=== PATIENT | male | born 1985 | race Caucasian/White ===

== ENCOUNTER 2018-11-07 11:51 | Day surgery (SDC) | payer OTHER ==
[~2018-11-07] VITALS: Ht 162.6 cm; Wt 65.0 kg
[~2018-11-07 11:51] MED LIST: OMEP20TA PO
[2018-11-07] MEDS ORDERED: NS 1,000 ML IV ONE (12:30)
[2018-11-07] MEDS ORDERED: PROPOFOL 200 MG/20 ML VIAL As Ordered ONE (12:46)
[2018-11-07] MEDS ORDERED: LIDOCAINE 2% INJ 100 MG/5 ML SDV (FOR ANES.) As Ordered ONE (12:47)
--- NOTE | 2018-11-07 13:08 | ROOR ---
Patient Name: Hugo Rowland Procedure Date: 11/07/2018 12:58 PM Date of : 1985 Age: 33 Room: [facility] Gender: Male Note Status: Finalized Procedure: Upper GI endoscopy Indications: Chronic cough, Vomiting Providers: Bruno BAKER MD Referring MD: Sita Matias MD Requesting Provider: Medicines: Monitored Anesthesia Care Complications: No immediate complications. Procedure: Pre-Anesthesia Assessment: - The heart rate, respiratory rate, oxygen saturations, blood pressure, adequacy of pulmonary ventilation, and response to care were monitored throughout the procedure. The Endoscope was introduced through the mouth, and advanced to the second part of duodenum. The upper GI endoscopy was accomplished without difficulty. The patient tolerated the procedure well. Findings: The esophagus was normal. The stomach was normal. The examined duodenum was normal. Impression: - Normal esophagus. - Normal stomach. - Normal examined duodenum. - No specimens collected. Recommendation: - Observe patient's clinical course. - Continue present medications. Bruno Baker MD Bruno BAKER MD 11/07/2018 1:08:03 PM This report has been signed electronically. Number of Addenda: 0 Note Initiated On: 11/07/2018 12:58 PM Estimated Blood Loss: Estimated blood loss: none.
[2018-11-07 13:25] VITALS: BP 125/85
== END 2018-11-07 13:32 | disposition home or self-care (01) ==
LOC: M OPP 11:51
PROVIDERS: ATTEND Internal Medicine Gastroenterology
DX: R05 Cough (principal); R11.10 Vomiting, unspecified; R12 Heartburn; F17.210 Nicotine dependence, cigarettes, uncomplicated; Z80.1 Family history of malignant neoplasm of trachea, bronchus and lung; Z79.899 Other long term (current) drug therapy

== ENCOUNTER 2021-02-06 20:57 | Inpatient (IN) | payer OTHER, SELFPAY ==
[~2021-02-06] VITALS: Ht 162.6 cm; Wt 65.4 kg
[~2021-02-06 20:57] MED LIST changes: +OMEP-358 PO; -OMEP20TA PO
[2021-02-06 22:19] LABS: HEMOGLOBIN 15.2 g/dl (13.5-17.5); MEAN CORPUSCULAR HEMOGLOBIN 30.8 pg (27.0-33.0); MEAN CORPUSCULAR HGB CONC 33.8 g/dl (32.0-36.5); MEAN CORPUSCULAR VOLUME 91.1 fl (80.0-96.0); PLATELET COUNT, AUTOMATED 290 10^3/uL (150-450); RED BLOOD COUNT 4.94 10^6/uL (4.30-6.10)
[2021-02-06 22:48] LABS: AMPHETAMINES LEVEL URINE NEGATIVE (NEGATIVE); BARBITURATES URINE NEGATIVE (NEGATIVE); BENZODIAZEPINES URINE NEGATIVE (NEGATIVE); CANNABINOIDS URINE NEGATIVE (NEGATIVE); COCAINE METABOLITE URINE NEGATIVE (NEGATIVE); METHADONE URINE NEGATIVE (NEGATIVE); OPIATES URINE NEGATIVE (NEGATIVE); PHENCYCLIDINE URINE NEGATIVE (NEGATIVE)
[2021-02-06 23:02] LABS: ACETAMINOPHEN LEVEL < 2.0 UG/ML (10.0-30.0); ALBUMIN 3.7 GM/DL (3.2-5.2); ALT/SGPT 21 U/L (12-78); BILIRUBIN,DIRECT < 0.1 MG/DL (0.0-0.2); BILIRUBIN,TOTAL 0.2 MG/DL (0.2-1.0); BLOOD UREA NITROGEN 12 MG/DL (7-18); CALCIUM LEVEL 8.6 MG/DL (8.5-10.1); CARBON DIOXIDE LEVEL 27 MEQ/L (21-32); CHLORIDE LEVEL 107 MEQ/L (98-107); CREATININE FOR GFR 0.82 MG/DL (0.70-1.30); ETHYL ALCOHOL (ETHANOL) 0.062 % (0.000-0.010); GLOMERULAR FILTRATION RATE > 60.0 (>60); GLUCOSE, FASTING 102 MG/DL (70-100); POTASSIUM SERUM 3.9 MEQ/L (3.5-5.1); SALICYLATE LEVEL 3.5 MG/DL (5.0-30.0); SODIUM LEVEL 141 MEQ/L (136-145); TOTAL PROTEIN 6.7 GM/DL (6.4-8.2)
[2021-02-07] MEDS ORDERED: METAL LOCK LOOP XX ONE (01:20)
[2021-02-07] MEDS ORDERED: ACETAMINOPHEN 325 MG TAB PO ONE (04:15)
[2021-02-07 05:05] LABS: RSV AMPLIFICATION NEGATIVE (NEGATIVE)
[2021-02-07] MEDS ORDERED: MAALOX 30 ML SUSP *UDC PO PRN (05:40)
[2021-02-07] MEDS ORDERED: ACETAMINOPHEN TAB 650MG DOSE (2X325MG) PO PRN (05:40)
[2021-02-07] MEDS ORDERED: MOM 30ML SUSPENSION UDC PO PRN (05:40)
[2021-02-07] MEDS ORDERED: traZODone 50 MG TAB PO PRN (05:40)
[2021-02-07] MEDS: NICOTINE 21MG/24HR 1 EA TRANSDERMAL TD SCH (09:00)
[2021-02-07 09:14] VITALS: BP 142/88
--- NOTE | 2021-02-07 12:54 | MHHPE ---
HISTORY AND PHYSICAL DATE OF ADMISSION: 02/07/2021 IDENTIFYING DATA: This is a 36-year-old male living with his girlfriend and two of his children who was admitted because of suicidal and homicidal statements. CHIEF COMPLAINT: "I don't need to answer you, everything is in the chart." HISTORY OF PRESENT ILLNESS: The patient was angry and uncooperative. He was exhibiting some hostility and reported that I can look into the chart to see the history. Going through the ER report, the patient called his cousin stating that he wanted to kill his family and then kill him self, and the patient reportedly admitted it in the ER that he made those statements, but he denied suicidal ideas. The patient reportedly was depressed after the of his father and his family was letting him down and he is angry with them. The patient reportedly had a gun in his vehicle, which has been removed by his girlfriend's son. Reportedly, he was having it since hunting season. He denies any suicidal attempts in the past. Denies any auditory or visual hallucinations. Reports he has never seen a psychiatrist before, but when he was young he had seen therapists for anger management. According to the ER report, his girlfriend says he is getting angry even for trivial things and easily irritable; however, has not made any suicidal or homicidal statements against her. Since the patient is angry and hostile, I was not able to ask some questions pertaining to his history and past psychiatric hospitalization. He reported that he does not want to be on any medications. PAST PSYCHIATRIC HISTORY: He denies. PAST MEDICAL HISTORY: He denies any medical problems. FAMILY HISTORY: He does not want to talk about his family. MENTAL STATUS EXAMINATION: Appearance is moderately well-groomed. Behavior is agitated, hostile, and demeaning. Eye contact indirect. Speech monosyllabic. Mood depressed and anxious. Affect constricted. Thought process linear goal directed. Thought content: Denied any suicidal or homicidal ideas. Perception: Denied any auditory or visual hallucinations. Cognition: Alert and oriented to time, place, and person. Insight and judgment are poor. VITAL SIGNS: Temperature 98.3, pulse 86, respiratory rate 16, blood pressure 142/88, pulse oximetry 99%. LABORATORY DATA: CBC within normal limits. CMP within normal limits. Toxicology: Alcohol level was 0.062. REVIEW OF SYSTEMS: Constitutional: No night sweats. No fever. HEENT: No headache. No sore throat. No epistaxis. Respiratory: Denied any shortness of breath or cough. Cardiovascular: Denied any palpitations or chest pain. Gastrointestinal: Denied abdominal pain. Denied any change in bowel habits. Genitourinary: Denied any dysuria or hematuria. Neurologic: Denied any numbness, tingling, or dizziness. Musculoskeletal: Denied any bone or joint aches. DIAGNOSIS: Mood disorder not otherwise specified; rule out adjustment disorder, rule out alcohol intoxication. PLAN: 1. Admit to [facility]. 2. He will be seen by hospitalist for any medical needs. 3. He will be seen by child protective services social worker and case management. 4. He will be continuing individual group and milieu therapy. 5. Medication: The patient refuses to take any medication. I will try to place him on some mood stabilizer one the patient agrees to take the medication. Estimated length of time spent: 45 minutes. Estimated length of stay is four to five days. MTDD
[2021-02-07 18:31] VITALS: BP 114/75
[2021-02-08 06:38] VITALS: BP 154/99
[2021-02-08] MEDS: CitaloPRAM (CeleXA) 10 MG TABLET PO SCH (09:00)
[2021-02-08] MEDS: NICOTINE 21MG/24HR 1 EA TRANSDERMAL TD SCH (09:00)
--- NOTE | 2021-02-08 14:54 | MHIPN ---
[facility] PROGRESS NOTE DATE: 02/08/2021 SUBJECTIVE: "I don't want to take any medicines." OBJECTIVE: He is a 36-year-old male, living with his girlfriend and two of sons, who was admitted because of suicidal and homicidal statements. He reportedly told his cousin that he wanted to kill his family and then kill himself. Patient reportedly was depressed after the of his father. He has never seen a psychiatrist before. This is his first psychiatric hospitalization; however, he has seen therapist for anger management. Currently patient is isolative, and we are waiting for the collaterals from the family. MENTAL STATUS EXAMINATION: Casually dressed, cooperative. Made good eye contact. Lying in his bed. Psychomotor activity is normal. Speech rate, rhythm, volume are good. Denied any suicidal or homicidal ideas. Denied any hallucinations. Memory, immediate, remote, recent, is good. VITAL SIGNS: Temperature 98.1, pulse 83, respirations 16, blood pressure 154/99, pulse oximetry 94. LABORATORY DATA: CBC within normal limits. CMP within normal limits. Toxicology: Slightly increased ethyl alcohol level, 0.062. PLAN: Place him on antidepressants and have a family meeting with his mother and siblings. ESTIMATED LENGTH OF STAY: 3-4 days. TIME SPENT: 25 minutes.
--- NOTE | 2021-02-08 15:03 | HPEPDOC ---
[facility] Medical History & Physical Date of Admission Feb 07, 2021 Date of Service: Feb 08, 2021 Attending Physician: MELISSA HOU MD History and Physical CHIEF COMPLAINT: Threatening homicidal and suicidal ideations with access to gun HISTORY OF PRESENT ILLNESS: 36-year-old man who was brought into the ED after he threatened to kill members of his family and also voiced threats of suicide with known access to a gun that was later recovered and found unloaded i/s/o psychosocial stressors with the recent of his father. He confirmed having voiced homicidal threats and saying suicidal statements though he denied being suicidal. He was minimally verbal during out encounter and would not explain the environmental and psychosocial stressors further beyond the above statements. He denies any history of known chronic illness, does not take any medications at baseline, denies any illicit drug use, and endorses being a chronic smoker and occasional alcohol consumer. In the ED he was hemodynamically stable, afebrile, breathing comfortably on room air with a normal CBC and BMP and tox screen that was positive for ethyl alcohol and otherwise negative. Internal medicine is now consulted for medical evaluation. ROS: 10 point ROS was grossly negative except that he feels upset and frustrated with some of his family members. He would not answer to depression, sleep patterns and if he has thoughts of self harm. PAST PSYCHIATRIC HISTORY: Denies any prior history of psychiatric diagnoses PAST MEDICAL HISTORY: He denies any medical problems. FAMILY HISTORY: Refused to talk about his family. PHYSICAL EXAMINATION: GENERAL: NAD Head: NCAT EENT: EOMI, MMM NECK: supple. No adenopathy, has a long romero PULM: CTAB CARDIAC: RRR, no m/r/g ABD: Normoactive bowel sounds, soft, NTND EXT: WWP, no LE edema NEURO: CN2-12 grossly intact, normal gait PSYCH: withdrawn during interview, affect appears normal at this time LABS: reviewed ASSESSMENT: 36 yo M with no PMHx who [facility] for homicidal and suicidal threats i/s/o the recent of his father. PLAN: Homicidal and suicidal ideation i/s/o the recent of his father: -Plan per primary psychiatry team Nicotine addiction: -Declined nicotine patch -Will continue thinking about quitting smoking Medicine will sign off at this time. Please re-consult for any medical concerns. Vital Signs Vital Signs Date Time Temp Pulse Resp B/P (MAP) Pulse Ox O2 Delivery O2 Flow Rate FiO2 02/08/21 06:38 98.1 83 16 154/99 (117) 94 Room Air Home Medications No Active Prescriptions or Reported Meds Allergies Coded Allergies: No Known Allergies (Verified , 04/20/03) A-FIB/CHADSVASC A-FIB History Current/History of A-Fib/PAF?: No Current PO Anticoag Therapy: No Age/Risk Factor Scoring CHADSVASC: CHADSVASC Response (Comments) Value Age Risk Factor Age < 65 years old 0 Gender Risk Factor Male 0 Hx of CHF No 0 Hx of HTN No 0 Hx of Stroke/TIA/or VTE No 0 Hx of Diabetes No 0 Hx of Vascular Disease No 0 Total 0 Treatment Treatment ordered: NONE Reason Anticoagulant not given: Not indicated/[id number] MELISSA HOU MD Feb 08, 2021 15:03
[2021-02-08 16:04] VITALS: BP 132/71
[2021-02-09 06:14] VITALS: BP 133/67
[2021-02-09] MEDS: CitaloPRAM (CeleXA) 10 MG TABLET PO SCH (09:00)
[2021-02-09] MEDS: NICOTINE 21MG/24HR 1 EA TRANSDERMAL TD SCH (09:00)
--- NOTE | 2021-02-09 13:05 | MHIPNPDOC ---
[facility] Progress Note Progress Note DATE OF SERVICE: 02/09/21 SUBJECTIVE: "I don't want to take any medicines." have Alcohol issue OBJECTIVE: He is a 36-year-old male, living with his girlfriend and two of sons, who was admitted because of suicidal and homicidal statements. He reportedly told his cousin that he wanted to kill his family and then kill himself. Patient reportedly was depressed after the of his father. He has never seen a psychiatrist before. This is his first psychiatric hospitalization; however, he has seen therapist for anger management. Currently patient is isolative, and we are waiting for the collaterals from the family. Still he is not allowing us to talk to the family MENTAL STATUS EXAMINATION: Casually dressed, cooperative. Made good eye contact. Lying in his bed. Psychomotor activity is normal. Speech rate, rhythm, volume are good. Denied any suicidal or homicidal ideas. Denied any hallucinations. Memory, immediate, remote, recent, is good. Assessment : Depressive Disorder Unspecified R/ O Major Depressive disorder LABORATORY DATA: CBC within normal limits. CMP within normal limits. Toxicology: Slightly increased ethyl alcohol level, 0.062. PLAN: Encourage him to take antidepressants and have a family meeting with his mother and siblings. ESTIMATED LENGTH OF STAY: 3-4 days. TIME SPENT: 25 minutes. Vital Signs Vital Signs Date Time Temp Pulse Resp B/P (MAP) Pulse Ox O2 Delivery O2 Flow Rate FiO2 02/09/21 06:14 98.7 69 18 133/67 (89) 100 Room Air Current Medications Current Medications Medications (Trade) Dose Ordered Sig/Tamia Route PRN Reason Start Time Stop Time Status Last Admin Dose Admin Acetaminophen (Tylenol Tab) 650 mg Q6HP PRN PO HEADACHE or DISCOMFORT 02/07/21 05:40 Al Hydrox/Mg Hydrox/Simethicone (Mylanta) 30 ml Q4HP PRN PO HEARTBURN/INDIGESTION 02/07/21 05:40 Citalopram Hydrobromide (CeleXA) 10 mg DAILY PO 02/08/21 09:00 Home Med (Med Rec Complete!) ASDIRECTED XX 02/07/21 07:00 02/07/21 07:06 DC Magnesium Hydroxide (Milk Of Magnesia) 30 ml DAILYPRN PRN PO CONSTIPATION 02/07/21 05:40 Nicotine (Nicoderm Cq 21mg) 1 patch DAILY TD 02/07/21 09:00 Trazodone HCl (Desyrel) 50 mg QHSP PRN PO INSOMNIA 02/07/21 05:40 Allergies Coded Allergies: No Known Allergies (Verified , 04/20/03) GERMÁN TILLEY MD Feb 09, 2021 13:05
[2021-02-09 16:07] VITALS: BP 118/79
[2021-02-10 06:38] VITALS: BP 118/62
[2021-02-10] MEDS: CitaloPRAM (CeleXA) 10 MG TABLET PO SCH (08:38)
[2021-02-10] MEDS: NICOTINE 21MG/24HR 1 EA TRANSDERMAL TD SCH (08:38)
--- NOTE | 2021-02-10 13:37 | MHIPNPDOC ---
[facility] Progress Note Progress Note DATE OF SERVICE: 02/10/21 SUBJECTIVE: "I don't want to take any medicines." have Alcohol issue I was drinking when I made those statements. I do not mean to hurt my family or me" OBJECTIVE: He is a 36-year-old male, living with his girlfriend and two of sons, who was admitted because of suicidal and homicidal statements. He reportedly told his cousin that he wanted to kill his family and then kill himself. Patient reportedly was depressed after the of his father. He has never seen a psychiatrist before. This is his first psychiatric hospitalization; however, he has seen therapist for anger management. Currently patient is interacting with the staff and calmer SW called his girl friend and his mother.They are willing to accept him ,According to family it is ongoing issue but never made statement to hurt himself and pt agreed to take medications.Denied SI or HI. MENTAL STATUS EXAMINATION: Casually dressed, cooperative. Made good eye contact. Lying in his bed. Psychomotor activity is normal. Speech rate, rhythm, volume are good. Denied any suicidal or homicidal ideas. Denied any hallucinations. Memory, immediate, remote, recent, is good. Assessment : Depressive Disorder Unspecified R/ O Major Depressive disorder LABORATORY DATA: CBC within normal limits. CMP within normal limits. Toxicology: Slightly increased ethyl alcohol level, 0.062. PLAN: Start on fluoxetine 10 mg daily ESTIMATED LENGTH OF STAY: 3-4 days. TIME SPENT: 25 minutes. Vital Signs Vital Signs Date Time Temp Pulse Resp B/P (MAP) Pulse Ox O2 Delivery O2 Flow Rate FiO2 02/10/21 06:38 97.9 66 20 118/62 (80) 99 Room Air Current Medications Current Medications Medications (Trade) Dose Ordered Sig/Tamia Route PRN Reason Start Time Stop Time Status Last Admin Dose Admin Acetaminophen (Tylenol Tab) 650 mg Q6HP PRN PO HEADACHE or DISCOMFORT 02/07/21 05:40 Al Hydrox/Mg Hydrox/Simethicone (Mylanta) 30 ml Q4HP PRN PO HEARTBURN/INDIGESTION 02/07/21 05:40 Citalopram Hydrobromide (CeleXA) 10 mg DAILY PO 02/08/21 09:00 Home Med (Med Rec Complete!) ASDIRECTED XX 02/07/21 07:00 02/07/21 07:06 DC Magnesium Hydroxide (Milk Of Magnesia) 30 ml DAILYPRN PRN PO CONSTIPATION 02/07/21 05:40 Nicotine (Nicoderm Cq 21mg) 1 patch DAILY TD 02/07/21 09:00 Trazodone HCl (Desyrel) 50 mg QHSP PRN PO INSOMNIA 02/07/21 05:40 Allergies Coded Allergies: No Known Allergies (Verified , 04/20/03) GERMÁN TILLEY MD Feb 10, 2021 13:37
[2021-02-10] MEDS ORDERED: FLUoxetine 10 MG CAP PO ONE (13:45)
[2021-02-10 16:43] VITALS: BP_SYST 140; BP_SYST 153; BP_DIAS 67; BP_DIAS 75
[2021-02-11] MEDS ORDERED: FLUO10CA16 PO (08:45)
[2021-02-11] MEDS ORDERED: FLUoxetine 10 MG CAP PO SCH (09:00)
[2021-02-11] MEDS: NICOTINE 21MG/24HR 1 EA TRANSDERMAL TD SCH (09:00)
--- NOTE | 2021-02-11 10:24 | MHDS ---
[facility] DISCHARGE SUMMARY DATE OF ADMISSION: 02/07/2021 DATE OF DISCHARGE: 02/11/2021 IDENTIFYING DATA: This is a 36-year-old male living with his girlfriend and two sons who was admitted because of suicidal and homicidal statements. He reportedly told his cousin that he wanted to kill his family and then kill himself. The patient reportedly was depressed and was drinking alcohol at the time. He has never seen a psychiatrist before. This is his first psychiatric hospitalization. However, he has seen a therapist for anger management. For details of HPI, past psychiatric history, medical history, substance abuse history, personal history, please refer to the initial evaluation. COURSE IN THE HOSPITAL: The patient was in denial of his problems. He did not want to talk to anybody. He refused to talk to his family. He did not give consent to talk to his family regarding this episode. However, slowly he started interacting with peers and he agreed to give consent to talk to the family. The patient was provided with individual, group and milieu therapy. He was prescribed initially Citalopram which he refused. His isolation resolved. He gave consent to talk to his family. His mother said this is ongoing for him but he never mentioned that he wanted to kill himself. According to the mother all this started after the of the father. Finally the patient agreed to take fluoxetine and denied any suicidal or homicidal ideas. MENTAL STATUS EXAMINATION: Neatly dressed, cooperative, made good eye contact. Psychomotor activity is normal. Speech rate, rhythm and volume are good. Denied any auditory as well as visual hallucinations. Denied suicidal and homicidal ideas. Memory, immediate, remote, recent are good. ASSESSMENT: Depressive disorder, unspecified. Rule out major depressive disorder. VITAL SIGNS: Temperature 97.8, pulse is 74, respirations 20, blood pressure 140/75. LABS: CBC within normal limits. CMP within normal limits. Toxicology: His alcohol level was 0.062. DISCHARGE MEDICATIONS: Fluoxetine 10 mg daily. PLAN: Plan is to send him home and follow up at [facility]. Time spent is less than 30 minutes. MTDD
== END 2021-02-11 11:10 | disposition home or self-care (01) | DRG 754 ==
LOC: M ED 20:57 → M ED INP 02-07 05:37 → M PSY 02-07 09:03
PROVIDERS: ADMIT Psychiatry & Neurology Psychiatry; ATTEND Psychiatry & Neurology Psychiatry
DX: F32.9 Major depressive disorder, single episode, unspecified (principal); R45.850 Homicidal ideations; R45.851 Suicidal ideations; F10.120 Alcohol abuse with intoxication, uncomplicated; F17.210 Nicotine dependence, cigarettes, uncomplicated; Z20.822 Contact with and (suspected) exposure to COVID-19; Z63.4 Disappearance and death of family member